=== PATIENT | male | born 1990 | race African-American/Black ===

== ENCOUNTER 2019-05-06 18:16 | Inpatient (IN) ==
[2019-05-06] MEDS ORDERED: HYDROmorphone 2 MG/1 ML VIAL IV STA (19:32)
[2019-05-06] MEDS ORDERED: ONDANSETRON 4 MG/2 ML VIAL IV STA (19:46)
[2019-05-06] MEDS ORDERED: LACTATED RINGERS 1,000 ML IV ONE (20:08)
[2019-05-06 20:14] LABS: Basophils # 0.1 10*3/uL (0.0-0.2); Basophils % 0.4 % (0.0-0.8); Eosinophils # 0.1 10*3/uL (0.0-0.87); Eosinophils % 0.7 % (0.00-10.9); Hematocrit 45.5 VOL% (42.0-52.0); Immature Granulocytes % 0.5 %; Immature Granulocytes Absolute 0.08 #; Lymphocytes # 3.1 10*3/uL (1.4-4.0); Lymphocytes % 20.6 % (21.2-54.2); Mean Corpuscular HGB Conc 37.4 GM/DL (32-36); Mean Corpuscular Volume 91.7 FL (87-102); Mean Platelet Volume 10.7 FL (9.6-12.0); Monocytes % 5.7 % (1.7-12.7); Neutrophils % 72.1 % (38.7-73.9); Platelet Count 281 T/CUMM (130-400); Red Blood Count 4.96 MC/CUMM (3.8-5.5); White Blood Count 15.1 T/CUMM (4-12)
[2019-05-06 20:33] LABS: Albumin 3.3 G/DL (3.4-5.0); Osmolality,Calculated 270.1 MOS/KG (273-304)
[2019-05-06 20:55] LABS: Bilirubin,Total 0.9 MG/DL (0.2-1.0); Calcium 9.6 MG/DL (8.5-10.1)
[2019-05-06] MEDS ORDERED: DICYCLOMINE 20 MG/2 ML AMP IM ONE (20:56)
[2019-05-06] MEDS ORDERED: PANTOPRAZOLE 40 MG VIAL IV STA (20:57)
[2019-05-06 21:03] LABS: Apearance,Urine CLEAR (Clear); Bilirubin,Urine Negative (Negative); Blood, Urine Negative (Negative); Glucose,Urine (UA) >=500 mg/dL (Negative); Ketones,Urine 5 mg/dL (Negative); Mucus,Urine Occasional /LPF (Occasional); Nitrite,Urine Negative (Negative); Protein,Urine 30 MG/DL; RBC,Urine 9 /HPF (0-4); Urine Color Yellow (Yellow); Urine Specific Gravity > 1.060 (1.001-1.035); Urine Urobilinogen < 2.0 EU/DL (0.2-1.0)
[2019-05-06 21:42] LABS: Barbiturates Screen,Urine Negative (Negative); Benzodiazepines Screen,Urine Negative (Negative); Cannabinoid Screen,Urine Negative (Negative); Opiate Screen,Urine Positive (Negative); Phencyclidine Screen,Urine Negative (Negative)
[2019-05-07] MEDS ORDERED: HYDROmorphone 2 MG/1 ML VIAL IV STA (00:11)
[2019-05-07] MEDS ORDERED: INSULIN REGULAR 100 UNIT/ML SUBCUT STA (00:11)
[2019-05-07] MEDS ORDERED: ONDANSETRON 4 MG/2 ML VIAL IV STA (00:11)
[2019-05-07] MEDS ORDERED: SODIUM CHLORIDE 0.9% 1,000 ML IV STA (00:13)
[2019-05-07] MEDS ORDERED: DOCUSATE SODIUM 100 MG CAPSULE PO PRN (00:16)
[2019-05-07] MEDS ORDERED: PROMETHAZINE 25 MG/1 ML VIAL IM PRN (00:16)
[2019-05-07] MEDS ORDERED: ONDANSETRON 4 MG/2 ML VIAL IV PRN (00:16)
[2019-05-07] MEDS ORDERED: ACETAMINOPHEN 325 MG TABLET PO PRN (00:16)
[2019-05-07] MEDS ORDERED: HYDROmorphone 2 MG/1 ML VIAL IV PRN (00:20)
[2019-05-07] MEDS ORDERED: KETOROLAC 15 MG/1 ML VIAL IV PRN (00:23)
[2019-05-07] MEDS ORDERED: KETOROLAC 30 MG/1 ML VIAL IV STA (00:23)
[2019-05-07] MEDS: SODIUM CHLORIDE 0.9% 1,000 ML IV SCH ×4 (00:30→23:38)
[2019-05-07] MEDS ORDERED: DEXTROSE 50% 25 GM/50 ML VIAL IV PRN (00:32)
[2019-05-07] MEDS ORDERED: GLUCAGON 1 MG VIAL IM PRN (00:32)
[2019-05-07] MEDS ORDERED: ALBUTEROL/IPRATROPIUM 3 ML NEB RESP TX PRN (01:07)
[2019-05-07] MEDS: cefTRIAXone 1,000 MG in SYRINGE 1 EACH IV SCH ×2 (01:50→23:38)
[2019-05-07] MEDS: AZITHROMYCIN INJ 500 MG in SODIUM CHLORIDE 0.9% 250 ML IV SCH (02:31)
[2019-05-07] MEDS: guaiFENesin/DM ER 600-30 MG TABLET PO SCH ×3 (02:32→21:40)
[2019-05-07] MEDS: INSULIN REGULAR 100 UNIT/ML SUBCUT SCH ×5 (02:33→21:40)
[2019-05-07] MEDS: ENOXAPARIN 40 MG/0.4 ML SYRINGE SUBCUT SCH ×2 (02:36→23:41)
[2019-05-07 06:17] LABS: Basophils # 0.1 10*3/uL (0.0-0.2); Basophils % 0.4 % (0.0-0.8); Eosinophils # 0.1 10*3/uL (0.0-0.87); Eosinophils % 0.8 % (0.00-10.9); Hematocrit 41.8 VOL% (42.0-52.0); Immature Granulocytes % 1.1 %; Immature Granulocytes Absolute 0.16 #; Lymphocytes # 2.7 10*3/uL (1.4-4.0); Lymphocytes % 19.5 % (21.2-54.2); Mean Corpuscular HGB Conc 35.9 GM/DL (32-36); Mean Corpuscular Volume 94.1 FL (87-102); Mean Platelet Volume 10.6 FL (9.6-12.0); Monocytes % 7.2 % (1.7-12.7); Platelet Count 240 T/CUMM (130-400); Red Blood Count 4.44 MC/CUMM (3.8-5.5); Red Cell Distribution Width 12.2 % (9.3-17.3)
[2019-05-07 07:50] LABS: Risk Ratio 13.41; Thyroid Stimulating Hormone 0.373 uIU/ml (0.358-3.74); VLDL CHOLESTEROL 613.4 MG/DL
[2019-05-07 08:19] LABS: Osmolality,Calculated 270.8 MOS/KG (273-304)
[2019-05-07] MEDS ORDERED: MORPHINE 4 MG/1 ML VIAL IV ONE (13:53)
[2019-05-07] MEDS ORDERED: MORPHINE 4 MG/1 ML VIAL IV PRN (15:15)
[2019-05-07] MEDS: ATORVASTATIN 40 MG TABLET PO SCH (21:40)
[2019-05-07] MEDS: INSULIN GLARGINE 100 UNIT/ML SUBCUT SCH (21:41)
[2019-05-08] MEDS: AZITHROMYCIN INJ 500 MG in SODIUM CHLORIDE 0.9% 250 ML IV SCH (01:44)
[2019-05-08] MEDS: SODIUM CHLORIDE 0.9% 1,000 ML IV SCH ×2 (06:03→08:18)
[2019-05-08] MEDS: INSULIN REGULAR 100 UNIT/ML SUBCUT SCH ×4 (08:14→21:40)
[2019-05-08] MEDS: guaiFENesin/DM ER 600-30 MG TABLET PO SCH ×2 (08:15→21:39)
[2019-05-08 12:26] LABS: Basophils % 0.2 % (0.0-0.8); Eosinophils # 0.1 10*3/uL (0.0-0.87); Eosinophils % 0.3 % (0.00-10.9); Hematocrit 39.8 VOL% (42.0-52.0); Hemoglobin 13.8 GM/DL (14.0-18.0); Immature Granulocytes % 0.7 %; Lymphocytes # 2.1 10*3/uL (1.4-4.0); Lymphocytes % 13.8 % (21.2-54.2); Mean Corpuscular HGB Conc 34.7 GM/DL (32-36); Mean Corpuscular Volume 93.4 FL (87-102); Mean Platelet Volume 9.7 FL (9.6-12.0); Monocytes % 8.5 % (1.7-12.7); Neutrophils % 76.5 % (38.7-73.9); Platelet Count 201 T/CUMM (130-400); Red Blood Count 4.26 MC/CUMM (3.8-5.5); Red Cell Distribution Width 11.9 % (9.3-17.3); White Blood Count 15.4 T/CUMM (4-12)
[2019-05-08 12:52] LABS: Osmolality,Calculated 268.4 MOS/KG (273-304)
[2019-05-08] MEDS ORDERED: MAGNESIUM SULF RIDER 4 GM in PREMIX 1 EACH IV PRN (13:00)
[2019-05-08] MEDS ORDERED: MAGNESIUM SULF RIDER 2 GM in PREMIX 1 EACH IV PRN (13:00)
[2019-05-08] MEDS: ATORVASTATIN 40 MG TABLET PO SCH (21:39)
[2019-05-08] MEDS: INSULIN GLARGINE 100 UNIT/ML SUBCUT SCH (21:40)
[2019-05-09] MEDS: ENOXAPARIN 40 MG/0.4 ML SYRINGE SUBCUT SCH ×2 (00:24→23:57)
[2019-05-09] MEDS: SODIUM CHLORIDE 0.9% 1,000 ML IV SCH ×5 (00:25→23:57)
[2019-05-09] MEDS: guaiFENesin/DM ER 600-30 MG TABLET PO SCH ×2 (08:50→20:08)
[2019-05-09] MEDS: INSULIN REGULAR 100 UNIT/ML SUBCUT SCH ×4 (08:50→20:09)
[2019-05-09 09:43] LABS: Basophils % 0.2 % (0.0-0.8); Eosinophils # 0.1 10*3/uL (0.0-0.87); Eosinophils % 0.7 % (0.00-10.9); Hematocrit 41.9 VOL% (42.0-52.0); Hemoglobin 14.2 GM/DL (14.0-18.0); Immature Granulocytes % 0.9 %; Immature Granulocytes Absolute 0.13 #; Lymphocytes # 2.2 10*3/uL (1.4-4.0); Lymphocytes % 14.4 % (21.2-54.2); Mean Corpuscular HGB Conc 33.9 GM/DL (32-36); Mean Corpuscular Volume 93.5 FL (87-102); Mean Platelet Volume 10.1 FL (9.6-12.0); Monocytes % 7.2 % (1.7-12.7); Neutrophils % 76.6 % (38.7-73.9); Platelet Count 227 T/CUMM (130-400); Red Blood Count 4.48 MC/CUMM (3.8-5.5); Red Cell Distribution Width 11.9 % (9.3-17.3); White Blood Count 15.2 T/CUMM (4-12)
[2019-05-09] MEDS: ATORVASTATIN 40 MG TABLET PO SCH (20:09)
[2019-05-09] MEDS: INSULIN GLARGINE 100 UNIT/ML SUBCUT SCH (20:09)
[2019-05-10 05:05] LABS: Basophils # 0.1 10*3/uL (0.0-0.2); Basophils % 0.4 % (0.0-0.8); Eosinophils # 0.2 10*3/uL (0.0-0.87); Eosinophils % 1.7 % (0.00-10.9); Hematocrit 39.8 VOL% (42.0-52.0); Hemoglobin 13.5 GM/DL (14.0-18.0); Immature Granulocytes % 1.2 %; Immature Granulocytes Absolute 0.14 #; Lymphocytes # 2.5 10*3/uL (1.4-4.0); Mean Corpuscular HGB Conc 33.9 GM/DL (32-36); Mean Corpuscular Volume 93.4 FL (87-102); Mean Platelet Volume 10.4 FL (9.6-12.0); Monocytes % 8.9 % (1.7-12.7); Neutrophils % 65.8 % (38.7-73.9); Platelet Count 236 T/CUMM (130-400); Red Blood Count 4.26 MC/CUMM (3.8-5.5); Red Cell Distribution Width 11.9 % (9.3-17.3); White Blood Count 11.2 T/CUMM (4-12)
[2019-05-10 05:24] LABS: Calcium 8.4 MG/DL (8.5-10.1)
[2019-05-10] MEDS: SODIUM CHLORIDE 0.9% 1,000 ML IV SCH (06:13)
[2019-05-10] MEDS: guaiFENesin/DM ER 600-30 MG TABLET PO SCH (08:14)
[2019-05-10] MEDS: POTASSIUM CHLORIDE 20 MEQ TABLET PO PRN ×2 (08:15→11:26)
[2019-05-10] MEDS: INSULIN REGULAR 100 UNIT/ML SUBCUT SCH ×2 (08:30→11:27)
[2019-05-10 10:03] VITALS: BP 170/99
== END 2019-05-10 11:50 | disposition home or self-care (01) | DRG 638 ==
LOC: N.ED 18:16 → N.EDINP 18:16 → N.2W 05-07 00:34 → SUATTDRO 05-08 09:42 → N.5E 05-08 14:47
PROVIDERS: ADMIT Internal Medicine; ATTEND Internal Medicine